=== PATIENT | male | born 1990 | race Caucasian/White ===

== ENCOUNTER 2022-08-09 07:04 | Outpatient (CLI) | payer MEDICARE, SELFPAY ==
--- NOTE | 2022-08-09 08:49 | W.ANESCHARGE ---
Anesthesia Charges Start Date/Time Anesthesia Start Date: 08/09/22 Anesthesia Start Time: 08:07 Stop Date/Time Anesthesia Stop Date: 08/09/22 Anesthesia Stop Time: 08:51
--- NOTE | 2022-08-09 08:59 | W.ANESCHARGE ---
Anesthesia Charges Start Date/Time Anesthesia Start Date: 08/09/22 Anesthesia Start Time: 08:07 Stop Date/Time Anesthesia Stop Date: 08/09/22 Anesthesia Stop Time: 08:51
== END 2022-08-09 07:05 | disposition home or self-care (01) ==
PROVIDERS: PCP Internal Medicine Gastroenterology; Visit Provider Internal Medicine Gastroenterology
DX: K52.9 Noninfective gastroenteritis and colitis, unspecified (principal); K21.00 Gastro-esophageal reflux disease with esophagitis, without bleeding; R19.7 Diarrhea, unspecified; R11.0 Nausea
CPT/HCPCS: 00811; 00813; 43239; 45380; 88305; J2704